=== PATIENT | female | born 1980 | race Two or more races ===

== ENCOUNTER 2018-11-17 14:06 | Emergency (ER) | payer OTHER ==
[~2018-11-17] VITALS: Ht 170.2 cm; Wt 65.8 kg
[2018-11-17] MEDS ORDERED: ESCI20TA PO (15:00)
--- NOTE | 2018-11-17 15:00 | NUR ---
Pt is in room 1a, calm and cooperative at this time.
[2018-11-17 15:19] LABS: BASOPHILS % (AUTO) 0.5 % (0.0-2.0); EOSINOPHILS # (AUTO) 0.2 K/uL (0.0-0.7); EOSINOPHILS % (AUTO) 2.7 % (0.0-7.0); HEMATOCRIT 41.3 % (31.2-41.9); HEMOGLOBIN 13.7 g/dL (10.9-14.3); LYMPHOCYTES # (AUTO) 2.2 K/uL (20.0-40.0); LYMPHOCYTES % (AUTO) 34.2 % (20.5-51.5); MEAN CORPUSCULAR HEMOGLOBIN 30.8 uug (24.7-32.8); MEAN CORPUSCULAR HGB CONC 33 g/dL (32.3-35.6); MEAN CORPUSCULAR VOLUME 92.9 fL (75.5-95.3); MONOCYTES # (AUTO) 0.4 K/uL (2.0-10.0); MONOCYTES % (AUTO) 6.5 % (0.0-11.0); NEUTROPHILS # (AUTO) 3.7 K/uL (1.8-8.9); NEUTROPHILS % (AUTO) 56.1 % (38.5-71.5); PLATELET COUNT (AUTO) 241 K/uL (179-408); RED BLOOD CELL COUNT(AUTO) 4.44 MIL/uL (3.63-4.92); WHITE BLOOD COUNT (AUTO) 6.6 K/uL (3.8-11.8)
[2018-11-17 15:33] LABS: *BILIRUBIN,URIN NEGATIVE (NEGATIVE); *BLOOD, URINE 1+ (NEGATIVE); *COLOR,URINE YELLOW (YELLOW); *KETONES,URINE NEGATIVE (NEGATIVE); LEUKOCYTE ESTERASE ,URINE 1+ (NEGATIVE); NITRITE, URINE NEGATIVE (NEGATIVE); PH,URINE 8.5 (5.0-8.0); UGLUCOSE NEGATIVE (NEGATIVE)
[2018-11-17 15:35] LABS: ACETAMINOPHEN < 2.0 ug/mL (10-30); ALANINE AMINOTRANSFERASE 25 U/L (14-59); ALKALINE PHOSPHATASE 44 U/L (50-136); ASPARTATE AMINOTRANSFERASE 50 U/L (15-37); BILIRUBIN,DIRECT 0.1 mg/dL (0.0-0.2); BILIRUBIN,TOTAL 0.6 mg/dL (0.2-1.0); CARBON DIOXIDE 28 mmol/L (21-32); CHLORIDE 106 mmol/L (98-107); CREATININE 0.9 mg/dL (0.6-1.3); GLUCOSE 95 mg/dL (74-106); POTASSIUM 4.3 mmol/L (3.5-5.1); TOTAL PROTEIN, SERUM 8.1 g/dL (6.4-8.2); UREA NITROGEN, BLOOD 9 mg/dL (7-18)
[2018-11-17 15:36] LABS: ETHANOL < 3 MG/DL (0-0)
[2018-11-17 15:37] LABS: *CLARITY,URINE SLIGHTLY CLOUDY (CLEAR)
[2018-11-17 15:43] LABS: *AMPHETAMINE, URINE NEGATIVE (NEGATIVE); *BARBITURATE, URINE NEGATIVE (NEGATIVE); *CANNABINOID, URINE POSITIVE (NEGATIVE); *COCCAINE, URINE NEGATIVE (NEGATIVE); *OPIATE, URINE NEGATIVE (NEGATIVE); *PHENCYCLIDINE SCREEN,URINE NEGATIVE (NEGATIVE)
[2018-11-17 15:51] LABS: SQUAMOUS EPITHELIAL CELL,UR MODERATE /HPF (NONE SEEN)
[2018-11-17 15:52] LABS: BACTERIA,URINE FEW /HPF (NONE SEEN)
--- NOTE | 2018-11-17 16:05 | NUR ---
Pt remains cooperative, pt states she feels "a little anxious" and would like Xanax 0.5mg as she takes at home as needed. notified. Called Mitch Kim for psych eval, eta 1hr.
--- NOTE | 2018-11-17 16:10 | NUR ---
Sitter arrived and is at bedside for 1:1 observation.
[2018-11-17] MEDS ORDERED: ALPRAZOLAM 0.5 MG TABLET ONE (16:13)
[2018-11-17] MEDS ORDERED: ALPRAZOLAM 0.25 MG TABLET PO ONE (16:18)
--- NOTE | 2018-11-17 16:25 | NUR ---
Pt agitated, states she wants to go home. Pt walked out of room 1a to [facility] area. Code hyacinth called, pt ambulated back to room 1a.
[2018-11-17] MEDS ORDERED: OLANZAPINE 5 MG TABLET ONE (16:41)
[2018-11-17] MEDS ORDERED: OLANZAPINE 5 MG TABLET PO ONE (16:45)
--- NOTE | 2018-11-17 16:48 | NUR ---
Mitch Kim here for psych eval.
--- NOTE | 2018-11-17 17:15 | NUR ---
Per Mitch Kim pt will not be placed on a 5150 hold and will be d/c home. Mitch spoke with .
--- NOTE | 2018-11-17 17:25 | NUR ---
Taxi voucher obtained per pt request. Pt stated she is will going out to smoke will be right back.
--- NOTE | 2018-11-17 17:41 | NUR ---
Patient discharged to home in stable conditon. Written and verbal after care instructions given. Patient verbalizes understanding of instructions. Taxi voucher provided for pt. Pt denies any suicidal ideation upon d/c.
== END 2018-11-17 17:45 | disposition home or self-care (01) ==
LOC: ER 14:06
DX: F32.9 Major depressive disorder, single episode, unspecified (principal); F17.200 Nicotine dependence, unspecified, uncomplicated; Z79.899 Other long term (current) drug therapy
CPT/HCPCS: 36415; 71045; 80048; 80076; 80307; 81000; 81001; 85025; 87086; 93005; 99284; G0480 ×2; G0481; A4663

== ENCOUNTER 2018-11-17 22:05 | Emergency (ER) | payer OTHER ==
[~2018-11-17] VITALS: Ht 170.2 cm; Wt 56.7 kg
[~2018-11-17 22:05] MED LIST: ESCI20TA PO
--- NOTE | 2018-11-17 22:45 | NUR ---
Pt. BIB [employer] for DTS, was seen here in ED earlier today and released, according to PD told a friend who was a psychologist that she wanted to jump off a building, A/Ox4, pt. is crying but consolable,
[2018-11-17] MEDS: LORAZEPAM 0.5 MG TABLET PO ONE (23:04)
[2018-11-17] MEDS ORDERED: LORAZEPAM 1 MG TABLET ONE (23:05)
--- NOTE | 2018-11-17 23:12 | NUR ---
Pt. given sandwich and orange juice,
--- NOTE | 2018-11-17 23:28 | NUR ---
Mitch Kim LCSW at bedside for CE,
--- NOTE | 2018-11-18 00:40 | NUR ---
Patient discharged to home in stable conditon. Written and verbal after care instructions given. Patient verbalizes understanding of instructions. Pt. d/c w/ prescription per MD order, d/c papers signed, all belongings w/ pt., ID band removed, ambulated off unit w/ steady gait accompanied by female friend, AUGIE
== END 2018-11-18 00:43 | disposition home or self-care (01) ==
LOC: ER 22:07
DX: F32.9 Major depressive disorder, single episode, unspecified (principal); F17.200 Nicotine dependence, unspecified, uncomplicated; F12.10 Cannabis abuse, uncomplicated; Z79.899 Other long term (current) drug therapy
CPT/HCPCS: A4663

== ENCOUNTER 2018-11-19 23:29 | Emergency (ER) | payer OTHER ==
[~2018-11-19] VITALS: Ht 170.2 cm; Wt 62.6 kg
--- NOTE | 2018-11-19 23:56 | NUR ---
Dr. Eisenberg at bedside for MSE.
[2018-11-20] MEDS ORDERED: diphenhydrAMINE 50 MG/1 ML VIAL ONE (00:02)
[2018-11-20] MEDS: diphenhydrAMINE 50 MG/1 ML VIAL IM ONE (00:03)
[2018-11-20] MEDS ORDERED: HYDROCODONE/APAP 5-325MG TABLET ONE (00:34)
[2018-11-20] MEDS: predniSONE 20 MG TABLET PO ONE (00:35)
[2018-11-20] MEDS ORDERED: FAMOTIDINE 20 MG TABLET ONE (00:35)
[2018-11-20] MEDS ORDERED: predniSONE 20 MG TABLET ONE (00:35)
[2018-11-20] MEDS: FAMOTIDINE 20 MG TABLET PO ONE (00:35)
[2018-11-20] MEDS: HYDROCODONE/APAP 5-325MG TABLET PO ONE (00:35)
[2018-11-20] MEDS: SULFAMETH/TRIMETH 800/160 MG TABLET PO ONE (01:03)
[2018-11-20] MEDS ORDERED: SULFAMETH/TRIMETH 800/160 MG TABLET ONE (01:06)
--- NOTE | 2018-11-20 01:10 | NUR ---
Patient discharged to home in stable conditon. Written and verbal after care instructions given. Patient verbalizes understanding of instructions. Pt ambulated out of ER with steady gait, no acute signs of distress, VSS, all belongings taken, to be driven home via private vehicle by mother.
[2018-11-20 01:12] VITALS: BP 105/70
== END 2018-11-20 01:13 | disposition home or self-care (01) ==
LOC: ER 23:31
DX: T63.481A Toxic effect of venom of other arthropod, accidental (unintentional), initial encounter (principal); L03.114 Cellulitis of left upper limb; F32.9 Major depressive disorder, single episode, unspecified; F12.10 Cannabis abuse, uncomplicated; F17.200 Nicotine dependence, unspecified, uncomplicated; Z79.899 Other long term (current) drug therapy; Y92.89 Other specified places as the place of occurrence of the external cause
CPT/HCPCS: 96372; 99284; J1200; J7512; A4663